=== PATIENT | female | born 1975 ===

== ENCOUNTER 2023-11-06 15:02 | Outpatient (REF) | payer MEDICAID, SELFPAY ==
[2023-11-06 16:51] LABS: Anion Gap 14 (12-20); Blood Urea Nitrogen 10 mg/dL (9-16); Calcium 9.2 mg/dL (8.4-10.2); Carbon Dioxide 24 mmol/L (22-29); Chloride 106 mmol/L (96-108); Estimated Glomerular Filt Rate > 60; Glucose Random 107 mg/dL (60-115); Iron 404 mcg/dL (30-160); Percent Iron Saturation 94 % (15-50); Potassium 3.5 mmol/L (3.3-5.1); Sodium 140 mmol/L (135-145); Total Iron Binding Capacity 432 mcg/dL (228-428); Unsaturated Iron Binding 28 ug/dL
[2023-11-06 16:55] LABS: Mean Corpuscular HGB Conc 28.6 g/dl (31.0-35.0); Mean Corpuscular Hemoglobin 18.4 pg (27.0-33.0); Platelet Count 454 X10*3/uL (160-400); Red Blood Count 5.44 X10*6/uL (4.20-5.50); White Blood Count 7.8 X10*3/uL (4.8-10.8)
[2023-11-06 17:10] LABS: Ferritin 48 ng/mL (10-250); Vitamin D 25-OH Total 5.5 ng/mL (>30)
[2023-11-06 17:11] LABS: Mean Corpuscular Volume 64.3 fL (80.0-98.0)
[2023-11-06 17:16] LABS: Basophils Abs Manual 0.2 X10*3/uL (0.0-0.2); Basophils Percent Manual 2 % (0-2); Lymphocytes Absolute Manual 1.9 X10*3/uL (1.2-4.9); Lymphocytes Percent Manual 24 % (20-40); Monocytes Absolute Manual 0.2 X10*3/uL (0.1-1.2); Monocytes Percent Manual 2 % (2-11); Neutrophils Percent Manual 72 % (45-73)
[2023-11-06 17:19] LABS: Burr Cells 2+ (3-5) /OIF; Ovalocytes 1+ (5-14) /OIF; RBC Morphology NOTED
[2023-11-06 17:21] LABS: Schistocytes 1+ (0-2) /OIF
[2023-11-06 17:22] LABS: Band Neutrophils Percent 0 % (3-5); Neutrophils Absolute Manual 5.6 X10*3/uL (2.0-8.3)
[2023-11-06 17:27] LABS: Platelet Estimate NORMAL (NORMAL); Platelet Morphology Comment NORMAL
== END 2023-11-06 15:03 | disposition home or self-care (01) ==
LOC: HO.HHCL 15:02
PROVIDERS: Visit Provider Nurse Practitioner
DX: R53.83 Other fatigue (principal); D25.9 Leiomyoma of uterus, unspecified; D64.9 Anemia, unspecified; I10 Essential (primary) hypertension
CPT/HCPCS: 36415; 80048; 82306; 82728; 83540; 84443; 85007; 85025; 85027

== ENCOUNTER 2024-05-20 16:12 | Outpatient (REF) | payer MEDICAID, SELFPAY ==
[2024-05-20 17:28] LABS: MANUAL DIFF FLAG NO
[2024-05-20 17:40] LABS: SCAN SMEAR FLAG 1
[2024-05-20 17:42] LABS: Basophils Absolute Auto 0.1 X10*3/uL (0.0-0.2); Eosinophils Absolute Auto 0.1 X10*3/uL (0.0-0.4); Eosinophils Percent Auto 0.5 % (0-4); Hematocrit 31.4 % (37.0-47.0); Hemoglobin 9.3 g/dl (12.0-16.0); Imm Gran Abs Auto 0.05 X10*3/uL (0.00-0.03); Imm Gran Pct Auto 0.4 % (0.0-0.4); Lymphocytes Absolute Auto 2.4 X10*3/uL (1.2-4.9); Lymphocytes Percent Auto 20.5 % (20-40); Mean Corpuscular HGB Conc 29.6 g/dl (31.0-35.0); Mean Corpuscular Hemoglobin 18.1 pg (27.0-33.0); Mean Platelet Volume 10.3 fL (9.4-12.3); Monocytes Absolute Auto 0.7 X10*3/uL (0.1-1.2); Monocytes Percent Auto 6.2 % (2-11); Neutrophils Absolute Auto 8.3 x10*3/uL (2.0-8.3); Neutrophils Percent Auto 71.4 % (45-73); Platelet Count 479 X10*3/uL (160-400); Red Blood Count 5.14 X10*6/uL (4.20-5.50); Red Cell Distribution Width 18.4 % (11.0-16.0); White Blood Count 11.6 X10*3/uL (4.8-10.8)
[2024-05-20 17:58] LABS: Cholesterol 237 mg/dL (<200); HDL Cholesterol 44 mg/dL (>40); Iron 11 mcg/dL (30-160); LDL Cholesterol Calculated 171 mg/dL (<100); Percent Iron Saturation 3 % (15-50); Total Iron Binding Capacity 424 mcg/dL (228-428); Triglycerides 110 mg/dL (<150); Unsaturated Iron Binding 413 ug/dL
[2024-05-20 19:04] LABS: Mean Corpuscular Volume 61.1 fL (80.0-98.0); PLT ABN DIST 1
[2024-05-21 03:41] LABS: Syphilis Screen Nonreactive (Nonreactive)
[2024-05-21 04:31] LABS: HBS Num1 14.93 mIU/mL (0-7.99); HBc Num1 0.23 S/CO (0.00-0.79); HIV AB/AG Nonreactive (Nonreactive); HIV Num 1 0.05 S/CO (0.00-0.99); Hepatitis B Core Antibody Nonreactive (Nonreactive); Hepatitis B Surface Antigen Negative (Negative); ~HepC Num1 0.15 S/CO (0.00-0.79); ~Hepatitis B Surface Antibody REACTIVE (Nonreactive); ~Hepatitis C Antibody Nonreactive (Nonreactive)
== END 2024-05-20 16:13 | disposition home or self-care (01) ==
LOC: HO.HHCL 16:12
PROVIDERS: Visit Provider Nurse Practitioner
DX: Z13.9 Encounter for screening, unspecified (principal); D64.9 Anemia, unspecified; E55.9 Vitamin D deficiency, unspecified
CPT/HCPCS: 36415; 80061; 82306; 83540; 85025; 86704; 86706; 86780; 86803; 87340; 87389

== ENCOUNTER 2024-06-10 13:03 | Outpatient (REF) | payer MEDICAID, SELFPAY ==
--- OUTSIDE RECORDS SUMMARY | 2024-06-10 14:52 | XMS_ITS | Encounter Summary ---
Author Organization [employer] Address [address] [place] [address] [address] [place] [address] Care Team Providers Care Senior Account Director Name Role Phone Joy Braswell NP Primary Care Provider [phone] Reason for Visit * Reason Onset Date Comments Care Coordination 05/23/2024 ICP CP Encounter Details Date Type Department Care Team (Late st Contact Info) Description 05/23/2024 Telephone [facility] [address] [place], [place] [phone] Joy Braswell NP [address] [place], [place] [phone] Care Coordination (ICP CP) Social History Tobacco Use Types Packs/Day Years Used Date Smoking Tobacco: Never Smokeless Tobacco: Never Depression Answer Date Recorded Patient Health Questionnaire-9 Score 20 02/18/2024 Patient Health Questionnaire-9 Score 20 02/18/2024 Last PHQ-9: Questionnaire Data Not on file 1 Housing Stability Answer Date Recorded What is your housing situation today? I have eliezer martínez 10/20/[address] you li ve. Do you have problems with any of the following? None of the above 10/20/2023 Food Insecurity Answer Date Recorded Within the past 12 months, y ou worried that your food would run out before you got money to buy more: Never True 10/20/2023 Within the past 12 months,th e food you bought just didn't last and you didn't have enough money to get more: Never True 08/2023 Transportation Answer Date Recorded In the past 12 months, has l ack of transportation kept you from medical appts, meetings, work or from getting things needed for daily living? No 10/20/2023 Utilities Answer Date Recorded In the past 12 months, has t he electric, gas, oil or water company threatened to shut off services in your home? No 10/20/2023 Depression Answer Date Recorded Patient Health Questionnaire-2 Score 6 02/18/2024 Comments Unknown Sex and Gender Information Value Date Recorded Sex Assigned at Female 03/17/2022 10:20 AM EDT Legal Sex Female 10:20 AM EDT Gender Identity Female 11/05/2023 9:30 AM EDT Sexual Orientation Straight 11/05/2023 9: 30 AM EDT documented as of this encounter Miscellaneous Notes * Telephone Encounter - Litzy Calle - 05/23/2024 9:35 AM EST PCP Designee has received and reviewed Care Plan from [facility]: Infection Prevention Coordinator: Sandy Rojo Contact Information: [phone] Care Plan scanned into patient's EHR and notification sent to PCP. documented in this encounter Plan of Treatment Upcoming Encounters Date Type Department Care Team ([facility] st Contact Info) Description 07/13/2024 9:00 AM EST Procedure Visit [facility] [address] [place] [address] oJy Braswell NP [address] [place] [address] documented as of this encounter Visit Diagnoses Not on filedocumented in this encounter Additional Health Concerns Assessment Noted Time PHQ-9 Depression Total Score: 20 024 2:37 PM EDT documented as of this encounter Care Teams Senior Account Director Relationship Specialty Start Date End Date Joy Braswell NP [address] [place] [address] PCP - General Family Medicine 04/27/24 Alia Delgado Oxidation EngineerCar Changer 05/23/24 documented as of this encounter
--- OUTSIDE RECORDS SUMMARY | 2024-06-10 14:52 | XMS_ITS | Encounter Summary ---
Author Organization [facility] Address [address] [place] [address] [address] [place] [address] Care Team Providers Care Disease And Insect Control Boss Name Role Phone Joy Braswell NP Primary Care Provider [phone] Reason for Referral * Imaging (Routine) - Authorized Specialty Diagnoses / Procedures Referred By Henrietta goss Referred To Contact Radiology Diagnoses Encounter for screening mammogram for malignant neoplasm of breast Procedures BI Mammogram Screening Tomosynthesis Bilateral Joy Braswell NP [address] [place] [address] Phone: tel: fax: [address] Phone: tel: fax: Referral ID Status Reason Start Date Expiration Date V isits Requested Visits Authorized [id number] Authorized 05/20/2024 05/20/2025 1 1 * Consultation (Routine) - Authorized Specialty Diagnoses / Procedures Referred By Henrietta goss Referred To Contact Obstetrics and Gynecology Diagnoses Anemia, unspecified type Joy Braswell NP [address] [place] [address] Phone: tel: fax: [address] Phone: tel: fax: Referral ID Status Reason Start Date Expiration Date Visits Requested Visits Authorized [id number] Authorized Specialty Services Required 05/20/2024 05/20/2025 9 9 Encounter Details Date Type Department Care Team (Late st Contact Info) Description 05/20/2024 3:30 PM EST Office Visit [facility] [address] [place] [address] Joy Braswell NP [address] [place] [address] Anemia, unspecified type (Primary Dx); Encounter for health-related screening; Hypovitaminosis D; Encounter for screening mammogram for malignant neoplasm of breast; Cervical cancer screening; Primary hypertension Social History Tobacco Use Types Packs/Day Years [...] AM EDT documented as of this encounter Last Filed Vital Signs Vital Sign Reading Time Taken Comments Blood Pressure 140/82 05/20/2024 3:45 PM EST Pulse 89 05/20/2024 3:00 PM EST Temperature 35.3 ??C (95.5 ??F) 05/20/2024 3:00 PM ES T Respiratory Rate 18 05/20/2024 3:00 PM EST Oxygen Saturation 99% 05/20/2024 3:00 PM EST Inhaled Oxygen Concentration - - Weight 64 kg (141 lb) 05/20/2024 3:00 PM EST Height 149.9 cm (4' 11 ) 05/20/2024 3:00 PM EST Body Mass Index 28.48 05/20/2024 3:00 PM EST documented in this encounter Progress Notes * Joy Braswell NP - 05/20/2024 3:30 PM EST SUBJECTIVE: Kat Kwon is a 48 y.o. female presents for sick visit. Complains of difficulty swallowing Here with daughter. HPI: Kat states she was sick about 1-2 months ago and started having difficulty swallowing her iron and vitamin C tabs after that. She is inquiring if there is a formulation she can try. Has continued taking amlodipine without a problem. Denies swallowing difficulties with foods, drink, or other medications. While she is here, we took the time to follow-up on her last visit which was October 2023 and discuss some routine health maintenance screenings. INDUCTION COORDINATION ENGINEER: states she was not able to get an appointment with INDUCTION COORDINATION ENGINEER to discuss interventions surrounding the fibroids causing heavy menses Hypertension: she has continued taking amlodipine but did not start hydrochlorothiazide as she was waiting for further directions regarding this. Has not been testing her BP at home. States she is asymptomatic. She is interested in learning more about how to test for Adi disease as her mother was recently diagnosed and it is recommended that she and her siblings also be tested. Review of Systems Constitutional: Positive for fatigue. Negative for chills, fever and unexpected weight change. HENT: Positive for trouble swallowing. Eyes: Negative for visual disturbance. Respiratory: Negative for cough, chest tightness and shortness of breath. Cardiovascular: Negative for chest pain, palpitations and leg swelling. Gastrointestinal: Negative for abdominal pain, constipation, diarrhea and nausea. Genitourinary: Negative for dysuria. Musculoskeletal: Negative for arthralgias, back pain, myalgias and neck pain. Skin: Negative. Negative for rash and wound. Neurological: Negative for dizziness, weakness, light-headedness and headaches. Psychiatric/Behavioral: Negative for behavioral problems, confusion, decreased concentration and suicidal ideas. All other systems reviewed and are negative. OBJECTIVE: Vitals: 05/20/24 1500 05/20/24 1545 BP: (!) 149/98 140/82 BP Location: Right arm Left arm Patient Position: Sitting Sitting BP Cuff Size: Large adult Adult Pulse: 89 Resp: 18 Temp: 95.5 ??F (35.3 ??C) TempSrc: Temporal SpO2: 99% Weight: 141 lb (64 kg) Height: 4' 11 (1.499 m) Patient Active Problem List Diagnosis Agoraphobia Anemia Anxiety Depression Menorrhagia Primary hypertension Hypovitaminosis D Encounter for screening mammogram for malignant neoplasm of breast Current Outpatient Medications: amLODIPine (Norvasc) 5 MG tablet, TAKE 1 TABLET BY MOUTH EVERY DAY, Disp: 90 tablet, Rfl: 1 ascorbic acid (Vitamin C) 250 MG chewable tablet, Chew 1 tablet (250 mg) every other day. With irontablet, Disp: 90 tablet, Rfl: 0 Blood Pressure Monitoring (Blood Pressure Cuff) misc, 1 Units Once per day., Disp: 1 each, Rfl: 0 cholecalciferol (Vitamin D3) 1.25 MG (69687 UT) tablet, Take 1 tablet (50,000 Units) by mouth 1 (one) time per week. For 8 weeks, Disp: 8 tablet, Rfl: 0 FeroSul 325 (65 Fe) MG tablet, Take 1 tablet (325 mg) by mouth every other day. With vitamin C, Disp: 15 tablet, Rfl: 1 hydroCHLOROthiazide 12.5 MG tablet, Take 1 tablet (12.5 mg) by mouth Once per day., Disp: 30 tablet, Rfl: 11 Physical Exam Vitals reviewed. Constitutional: General: She is not in acute distress. Appearance: Normal appearance. She is not ill-appearing. HENT: Head: Normocephalic and atraumatic. Right Ear: External ear normal. Left Ear: External ear normal. Nose: Nose normal. Eyes: General: No scleral icterus. Extraocular Movements: Extraocular movements intact. Cardiovascular: Rate and Rhythm: Normal rate and regular rhythm. Pulses: Normal pulses. Heart sounds: Normal heart sounds. Pulmonary: Effort: Pulmonary effort is normal. No respiratory distress. Breath sounds: Normal breath sounds. Musculoskeletal: General: Normal range of motion. Cervical back: Normal range of motion. Skin: General: Skin is warm. Coloration: Skin is pale. Neurological: General: No focal deficit present. Mental Status: She is alert and oriented to person, place, and time. Gait: Gait normal. Psychiatric: Mood and Affect: Mood normal. Behavior: Behavior normal. Current Outpatient Medications Medication Sig Dispense Refill amLODIPine (Norvasc) 5 MG tablet TAKE 1 TABLET BY MOUTH EVERY DAY 90 tablet 1 ascorbic acid (Vitamin C) 250 MG chewable tablet Chew 1 tablet (250 mg) every other day. With iron tablet 90 tablet 0 Blood Pressure Monitoring (Blood Pressure Cuff) misc 1 Units Once per day. 1 each 0 cholecalciferol (Vitamin D3) 1.25 MG (87072 UT) tablet Take 1 tablet (50,000 Units) by mouth 1 (one) time per week. For 8 weeks 8 tablet 0 FeroSul 325 (65 Fe) MG tablet Take 1 tablet (325 mg) by mouth every other day. With vitamin C 15 tablet 1 hydroCHLOROthiazide 12.5 MG tablet Take 1 tablet (12.5 mg) by mouth Once per day. 30 tablet 11 No current facility-administered medications for this visit. ASSESSMENT/PLAN: Problem List Items Addressed This Visit Anemia - Primary -offered liquid, however she declined -medication formulations changed. Encouraged to trial taking med with apple sauce or pudding if still bothersome -a new referral to farmworker fruit placed for evaluation of fibroids Relevant Medications FeroSul 325 (65 Fe) MG tablet ascorbic acid (Vitamin C) 250 MG chewable tablet Other Relevant Orders CBC auto differential (Completed) Iron And Total Iron Binding Capacity (Completed) Referral to Obstetrics / Gynecology Primary hypertension -advised to start taking hydrochlorothiazide as her office BP readings are persistently elevated -continue monitoring BP at home -diet and lifestyle recommendations reviewed -scheduled 2 week follow-up with team nurses Hypovitaminosis D -completed initial course of supplementation -repeat ordered to evaluate necessity for continuation/ dose change Relevant Orders Vitamin D, 25-Hydroxy, Total, Immunoassay (Completed) Encounter for screening mammogram for malignant neoplasm of breast Relevant Orders BI Mammogram Screening Tomosynthesis Bilateral Other Visit Diagnoses Encounter for health-related screening Relevant Orders Lipid Panel, Standard (Completed) HIV-1/2 Antigen and Antibodies, Fourth Generation, with Reflexes (Completed) Hepatitis C Antibody with Reflex to HCV, RNA, Quantitative, Real-Time PCR (Completed) Hepatitis B surface antigen, EIA (Completed) Hepatitis B Surface Antibody, Qualitative (Completed) Hepatitis B Core Antibody, Total (Completed) Syphilis Screen (Completed) Cervical cancer screening -patient is agreeable to scheduling appointment with me for testing. she was provided the appointment date and time prior to leaving the clinic today documented in this encounter Miscellaneous Notes * Assessment & Plan Note - Joy Braswell NP - 06/03/2024 11:42 AM ESTAssociated Problem(s): Primary hypertension -advised to start taking hydrochlorothiazide as her office BP readings are persistently elevated -continue monitoring BP at home -diet and lifestyle recommendations reviewed -scheduled 2 week follow-up with team nurses * Assessment & Plan Note - Joy Braswell NP - 06/03/2024 11:38 AM ESTAssociated Problem(s): Hypovitaminosis D -completed initial course of supplementation -repeat ordered to evaluate necessity for continuation/ dose change * Assessment & Plan Note - Joy Braswell NP - 06/03/2024 11:33 AM ESTAssociated Problem(s): Anemia -offered liquid, however she declined -medication formulations changed. Encouraged to trial taking med with apple sauce or pudding if still bothersome -a new referral to farmworker fruit placed for evaluation of fibroids documented in this encounter Plan of Treatment Upcoming Encounters Date Type Department Care Team (Late st Contact Info) Description 07/13/2024 9:00 AM EST Procedure Visit [facility] [address] [place] [address] Joy Braswell NP [address] [place] [address] Scheduled Orders Name Type Priority Associated Diagnoses Orde r Schedule BI Mammogram Screening Tomosynthesis Bilateral Imaging Routine Encounter for screening mammogram for malignant neoplasm of breast Expected: 05/20/2024, Expires: 07/18/2025 Scheduled Referrals Name Type Priority Associated Diagnoses Orde r Schedule Referral to Obstetrics / Gynecology Outpatient Referral Routine Anemia, unspecified type Expected: 05/20/2024 (Approximate), Expires: 05/20/2025 documented as of this encounter Procedures Procedure Name Priority Date/Time Associated Diagnosis Comments SYPHILIS SCREEN Routine 05/20/2024 4:14 PM EST Encounter for health-related screening VITAMIN D,25-OH,TOTAL,IA Routine 05/20/2024 4:14 PM EST Hypovitaminosis D CBC WITH AUTO DIFFERENTIAL Routine 05/20/2024 4:14 PM EST Anemia, unspecified type HEPATITIS C AB W/REFL TO HCV RNA, QN, PCR Routine 05/20/2024 4:14 PM EST Encounter for health-related screening IRON AND TOTAL IRON BINDING CAPACITY Routine 05/20/2024 4:14 PM EST Anemia, unspecified type HEPATITIS B SURFACE ANTIGEN, EIA Routine 05/20/2024 4:14 PM EST Encounter for health-related screening HEPATITIS B CORE AB TOTAL Routine 05/20/2024 4:14 PM EST Encounter for health-related screening HIV 1/2 ANTIGEN/ANTIBODY, FOURTH GENERATION W/RFL Routine 05/20/2024 4:14 PM EST Encounter for health-related screening HEPATITIS B SURFACE ANTIBODY, QUALITATIVE Routine 05/20/2024 4:14 PM EST Encounter for health-related screening LIPID PANEL, STANDARD Routine 05/20/2024 4:14 PM EST Encounter for health-related screening documented in this encounter Results * Syphilis Screen (05/20/2024 4:14 PM EST) Syphilis Screen Nonreactive Nonreactive [facility] Blood Venous blood specimen / Unknown 05/20/2024 4:14 PM EST 05/20/2024 5:25 PM EST [facility] [facility] LAB BLOOD ORDERABLES Final Resu lt Performing Organization Address [facility]/ZIP Co de Phone Number [facility] [address] [place] [phone] * Hepatitis B Core Antibody, Total (05/20/2024 4:14 PM EST) Hepatitis B Core Antibody Nonreactive Nonreactive [facility] Blood Venous blood specimen / Unknown 05/20/2024 4:14 PM EST 05/20/2024 5:25 PM EST [facility] LAB BLOOD ORDERABLES Final Resu lt Performing Organization Address [facility] Co de Phone Number [facility] [address] [place] [phone] * Hepatitis B Surface Antibody, Qualitative (05/20/2024 4:14 PM EST) ~Hepatitis B Surface Antibody REACTIVE Nonreactive [facility] Comment:REACTIVE: > 11.99 mI U/mL Blood Venous blood specimen / Unknown 05/20/2024 4:14 PM EST 05/20/2024 5:25 PM EST [facility] [employer] [facility] LAB BLOOD ORDERABLES Final Resu lt Performing Organization Address City/[facility]/ZIP Co de Phone Number [facility] [address] [place] [phone] * Hepatitis B surface antigen, EIA (05/20/2024 4:14 PM EST) Pathologist [facility] Hepatitis B Surface Ag Negative Negative [facility] Blood Venous blood specimen / Unknown 05/20/2024 4:14 PM EST 05/20/2024 5:25 PM EST Pending sale to [facility] LAB BLOOD ORDERABLES Final Resu lt Performing Organization Address [facility] Co de Phone Number [facility] [address] [place] [phone] * Hepatitis C Antibody with Reflex to HCV, RNA, Quantitative, Real-Time PCR (05/20/2024 4:14 PM EST) Pathologist [facility] Hepatitis C Antibody Nonreactive Nonreactive [facility] Comment:Antibodies to HCV no t detected; does not exclude early acuteHCV infection. Blood Venous blood specimen / Unknown 05/20/2024 4:14 PM EST 05/20/2024 5:25 PM EST Pending sale to [facility] LAB BLOOD ORDERABLES Final Resu lt Performing Organization Address [facility] de Phone Number [facility] [address] [place] [phone] * HIV-1/2 Antigen and Antibodies, Fourth Generation, with Reflexes (05/20/2024 4:14 PM EST) HIV AB/AG Nonreactive Nonreactive [facility] Comment:HIV-1 p24 Ag and/or HIV-1/HIV-2 Ab not detected.A test result that is nonreactive does not exclude thepossibility of exposure to or infection with HIV-1 and/orHIV-2. Nonreactive results in this assay for individualswith prior exposure to HIV-1 and/or HIV-2 may be due toantigen and antibody levels that are below the limit ofdetection of this assay.The [place] HIV Ag/Ab Combo assay result andsupplemental assay results should be interpreted inconjunction with the patient's clinical presentation,history and other laboratory results. If the results areinconsistent with clinical evidence, additional testing issuggested to confirm the result. Blood Venous blood specimen / Unknown 05/20/2024 4:14 PM EST 05/20/2024 5:25 PM EST [facility] BLOOD ORDERABLES Final Resu lt Performing Organization Address [facility] de Phone Number [facility] [address] [place] [phone] * (ABNORMAL) Lipid Panel, Standard (05/20/2024 4:14 PM EST) Triglycerides 110 <150 mg/dL [facility] Comment:Desirable Triglyceri de: less than 150 mg/dLBorderline High Triglyceride 150-199 mg/dLHigh Triglyceride: 200-499 mg/dLVery High Triglyceride: greater than or equal to 5OO mg/dL Cholesterol 237(H) <200 mg/dL [facility] Comment:Desirable Cholestero l: less than 200 mg/dLBorderline High Cholesterol: 200-239 mg/dLHigh Cholesterol: greater than 239 mg/dL LDL Cholesterol Calculated 171(H) <100 mg/dL [facility] Comment:Desirable LDL: less than 100 mg/dLNear Optimal/Above Optimal LDL: 110- 129 mg/dLBorderline High LDL: 130-159 mg/dLHigh LDL: 160-189 mg/dLVery High LDL: greater than or equal to 190 mg/dL HDL Cholesterol 44 >40 mg/dL [facility] Comment:Desirable HDL: great er than 40 mg/dL Note: This HDL assay may give artificially low results in patients with liver disease. Blood Venous blood specimen / Unknown 05/20/2024 4:14 PM EST 05/20/2024 5:25 PM EST [facility] LAB BLOOD ORDERABLES Final Resu lt Performing Organization Address [facility] Co de Phone Number [facility] [address] [place] [phone] [phone] * Vitamin D, 25-Hydroxy, Total, Immunoassay (05/20/2024 4:14 PM EST) Vitamin D 25-OH Total 39.0 >30 ng/mL [facility] Comment:Health Based Referen ce Values*< 20 ng/mL [id number] ng/mL Insufficient> 30 ng/mL Sufficient*Isi FAM. N Engl J Med. 2007;357:266-280Care must be taken in interpreting Vitamin D results fromdifferent laboratories and methodologies. Published datademonstrated that results from patients undergoinghemodialysis may show a negative bias when tested withvarious automated 25-OH vitamin D assays when compared toLC-MS/MS.When testing samples from patients whose predominant form ofVitamin D is Vitamin D2, such as patients receiving VitaminD2 supplementation, results that are subtherapeutic shouldbe confirmed with another method such as LC-MS/MS. Blood Venous blood specimen / Unknown 05/20/2024 4:14 PM EST 05/20/2024 5:25 PM EST [facility] LAB BLOOD ORDERABLES Final Resu lt Performing Organization Address [facility]/ZIP Co de Phone Number [facility] [address] [place] [phone] * (ABNORMAL) Iron And Total Iron Binding Capacity (05/20/2024 4:14 PM EST) Iron 11(L) 30 - 160 mcg/dL [facility] Total Iron Binding Capacity 424 228 - 428 mcg/dL [facility] Percent Iron Saturation 3(L) 15 - 50 % [facility] Unsaturated Iron Binding 413 ug/dL [facility] Blood Venous blood specimen / Unknown 05/20/2024 4:14 PM EST 05/20/2024 5:25 PM EST [facility] LAB BLOOD ORDERABLES Final Resu lt [facility] [address] [place] [phone] * (ABNORMAL) CBC auto differential (05/20/2024 4:14 PM EST) White Blood Count 11.6(H) 4.8 - 10.8 X10*3/uL [facility] Red Blood Count 5.14 4.20 - 5.50 X10*6/uL [facility] Hemoglobin 9.3(L) 12.0 - 16.0 g/dl [facility] Hematocrit 31.4(L) 37.0 - 47.0 % [facility] Mean Corpuscular Volume 61.1(L) 80.0 - 98.0 fL [facility] Mean Corpuscular Hemoglobin 18.1(L) 27.0 - 33.0 pg [facility] Mean Corpuscular HGB Conc 29.6(L) 31.0 - 35.0 g/dl [facility] Red Cell Distribution Width 18.4(H) 11.0 - 16.0 % [facility] Platelet Count 479(H) 160 - 400 X10*3/uL [facility] Mean Platelet Volume 10.3 9.4 - 12.3 fL [facility] Neutrophils Percent Auto 71.4 45 - 73 % [facility] Imm Gran Pct Auto 0.4 0.0 - 0.4 % [facility] Lymphocytes Percent Auto 20.5 20 - 40 % [facility] Monocytes Percent Auto 6.2 2 - 11 % [facility] Eosinophils Percent Auto 0.5 0 - 4 % [facility] Basophils Percent Auto 1.0 0 - 2 % [facility] NRBC Pct Auto 0.0 0.0 - 0.2 /100WBC [facility] Neutrophils Absolute Auto 8.3 2.0 - 8.3 x10*3/uL [facility] Imm Gran Abs Auto 0.05(H) 0.00 - 0.03 X10*3/uL [facility] Lymphocytes Absolute Auto 2.4 1.2 - 4.9 X10*3/uL [facility] Monocytes Absolute Auto 0.7 0.1 - 1.2 X10*3/uL [facility] Eosinophils Absolute Auto 0.1 0.0 - 0.4 X10*3/uL [facility] Basophils Absolute Auto 0.1 0.0 - 0.2 X10*3/uL [facility] NRBC Abs Auto 0.000 0.0 - 0.012 X10*3/uL [facility] Blood Venous blood specimen / Unknown 05/20/2024 4:14 PM EST 05/20/2024 5:25 PM EST us Joy Braswell NP LAB BLOOD ORDERABLES Final Resu lt [facility] [address] [place] [phone] documented in this encounter Visit Diagnoses Diagnosis Anemia, unspecified type- Primary Encounter for health-related screening Hypovitaminosis D Unspecified vitamin D deficiency Encounter for screening mammogram for malignant neoplasm of breast Cervical cancer screening Screening for malignant neoplasm of the cervix Primary hypertension Unspecified essential hypertension documented in this encounter Additional Health Concerns Assessment Noted Time PHQ-9 Depression Total Score: 20 024 2:37 PM EDT documented as of this encounter Care Teams Disease And Insect Control Boss Relationship Specialty Start Date End Date Joy Braswell NP [address] [place] [phone] PCP - General Family Medicine 04/27/24 documented as of this encounter
--- OUTSIDE RECORDS SUMMARY | 2024-06-10 14:52 | XMS_ITS | Encounter Summary ---
Author Organization [employer] Address [address] [place] [address] [address] [place] [address] Care Team Providers Care Leasing Representative Name Role Phone DonyaJoy okeefe SIMI Primary Care Provider [phone] Reason for Visit * Reason Comments Blood Pressure Check Encounter Details Date Type Department Care Team ([facility] st Contact Info) Description 06/03/2024 1:30 PM EST Telemedicine [facility] [address] [place] [address] Nicole Haji RN Primary hypertension Social History Tobacco Use Types [...] AM EDT documented as of this encounter Progress Notes * Nicole Haji RN - 06/03/2024 1:30 PM EST TC placed to pt per PCP message, Please call and ensure the patient has seen the message below andassess home BP while on the phone with her as she missed her nurse visit this am. Thanks Pt reports they thought it was a telephone BP visit with the nurse. Pt saw provider message, but nurse reviewed with pt per pt request. Pt reports she was not able to pick up and delivery driver the FeroSul 325 (65 Fe) MG tabletas her insurance wont cover unless it is prescribed as a 90 day supply. Pt denies chest pain, SOB, lightheadedness, blurry vision. Pt reports headaches approximately everyother day rated at 5-6/10. Pt denies smoking or drinking alcohol. Pt does not currently exercise, but will begin to try per PCP recommendation. Pt reports there are days when she feels she can eat everything in sight and days that she barely eats at all. Pt reports this is not new for her appetite.Advised to avoid fried, fatty, processed foods and pastries. Pt reports she gets short of breath when she walks up the stairs, but denies SOB at rest. Pt reports taking BP medications as prescribed. Pt at home BP readings as follows: 05/21/24 - forgot 05/22/24 - 148/94 05/23/24 - 136/90 05/24/24 - 132/90 05/25/24 - 128/83 05/26/24 - 137/85 05/27/24 - 128/89 05/28/24 - 155/92 05/29/24 - 133/93 05/30/24 - 133/93 05/31/24 - 117/83 06/01/24 - 123/88 06/02/24 - 127/89 06/03/24 - 124/85 Advised to call office with any questions or concerns. Pt encouraged to avoid fried, fatty, processed foods. Advised to begin exercising for 30 minutes per day. Pt verbalized understanding and deniesany questions or concerns at this time. Message forwarded to provider for review. documented in this encounter Plan of Treatment Upcoming Encounters Date Type Department Care Team (Late st Contact Info) Description 07/13/2024 9:00 AM EST Procedure Visit [facility] [address] [place] [address] Joy Braswell NP [address] [place] [address] documented as of this encounter Visit Diagnoses Diagnosis Primary hypertension Unspecified essential hypertension documented in this encounter Additional Health Concerns Assessment Noted Time PHQ-9 Depression Total Score: 20 024 2:37 PM EDT documented as of this encounter Care Teams Leasing Representative Relationship Specialty Start Date End Date Joy Braswell NP [address] [place] [address] PCP - General Family Medicine 04/27/24 Alia Delgado Cloth Boil Off Machine OperatorLife Enrichment Specialist 05/23/24 documented as of this encounter
--- OUTSIDE RECORDS SUMMARY | 2024-06-10 14:52 | XMS_ITS | Clinical Summary ---
Author Organization [employer] Address [address] [place] [address] 7[address] [place] [address] Care Team Providers Care Fender Mechanic Name Role Phone Donyamaldonado Joy SIMI Primary Care Provider [phone] Allergies No known active allergies Medications * This document contains information received from the source organization and may not represent a complete record from that organization. Blood Pressure Monitoring (Blood Pressure Cuff) miscIndications: Primary hypertension 1 Units Once per day. 1 each 11/06/19 24 Active hydroCHLOROthiaz americo 12.5 MG tabletIndication s:Primary hypertension Take 1 tablet (12.5 mg) by mouth Once per day. 30 tablet 11 11/06/19 24 025 Active cholecalciferol (Vitamin D3) 1.25 MG (12354 UT) tabletIndication s:Hypovitaminosi s D Take 1 tablet (50,000 Units) by mouth 1 (one) time per week. For 8 weeks 8 tablet 02/06/20 24 Active amLODIPine (Norvasc) 5 MG tablet TAKE 1 TABLET BY MOUTH EVERY DAY 90 tablet 1 02/15/20 24 Active ascorbic acid (Vitamin C) 250 MG chewable tabletIndication s:Anemia, unspecified type Chew 1 tablet (250 mg) every other day. With iron tablet 90 tablet 05/20/19 25 Active FeroSul 325 (65 Fe) MG tabletIndication s:Anemia, unspecified type Take 1 tablet (325 mg) by mouth every other day. With vitamin C 45 tablet 1 06/03/19 25 025 Active FeroSul 325 (65 Fe) MG tablet Take 1 tablet by mouth every other day. With vitamin C 10/16/19 24 025 Discontinued(Re order (will not trigger notification to Pharmacy)) Ascorbic Acid (vitamin C) 250 MG tabletIndication s:Anemia, unspecified type TAKE 1 TABLET BY MOUTH EVERY OTHER DAY WITH IRON 45 tablet 02/15/20 24 025 Discontinued(Al ternate therapy) FeroSul 325 (65 Fe) MG tabletIndication s:Anemia, unspecified type Take 1 tablet (325 mg) by mouth every other day. With vitamin C 15 tablet 1 05/20/19 25 025 Discontinued(Re order (will not trigger notification to Pharmacy)) Active Problems Problem Noted Date Diagnosed Date Hypovitaminosis D 06/03/2024 Assessment & Plan (06/03/2024 11:38 AM EST): -completed initial course of supplementation -repeat ordered to evaluate necessity for continuation/ dose change Encounter for screening mamm ogram for malignant neoplasm of breast 06/03/2024 Primary hypertension 02/06/2024 Assessment & Plan (06/03/2024 11:42 AM EST): -advised to start taking hydrochlorothiazide as her office BP readings are persistently elevated -continue monitoring BP at home -diet and lifestyle recommendations reviewed -scheduled 2 week follow-up with team nurses Assessment & Plan (02/06/2024 6:02 AM EDT): -continue amlodipine 5 mg as rx'ed -start hctz given persistently elevated BP -BP cuff rx'ed and log provided for daily monitoring -follow-up 1 month for BP check Agoraphobia 11/02/2023 Anemia 11/02/2023 Assessment & Plan (06/03/2024 11:33 AM EST): -offered liquid, however she declined -medication formulations changed. Encouraged to trial taking med with apple sauce or pudding if still bothersome -a new referral to roving machine operator placed for evaluation of fibroids Assessment & Plan (02/06/2024 6:00 AM EDT): -repeat labs ordered -encouraged continued use of iron supplement in addition to vitamin C -advised increased intake of iron rich foods, examples provided -follow-up with assigned pcp in 4 weeks Anxiety 11/02/2023 Assessment & Plan (02/06/2024 5:59 AM EDT): -patient seen by psych during hospitalization -states she stable at this time, but is willing to accept referral for psych services -advised on the benefits of engaging in gentle yoga practices, meditation, deep breathing and journaling along with physical activity to aid in symptom improvement -follow-up in 4 weeks Depression 11/02/2023 Menorrhagia 11/02/2023 Encounters * This document contains information received from the source organization and may not represent a complete record from that organization. Date Type Department Care Team Description 06/03/2024 1:30 PM EST Telemedicine [facility] [address] [place] [phone] Nicole Haji, HUSSEIN Primary hypertension 06/03/2024 Orders Only [facility] [address] [place] [address] Joy Braswell NP Anemia, unspecified type 06/03/2024 Refill [facility] [address] [place] [address] Nicole Haji RN Anemia, unspecified type 06/03/[address] [address] Joy Braswell NP No Show 05/23/[address] [address] Joy Braswell NP Care Coordination (ICP CP) 05/20/2024 3:30 PM EST Office Visit [address] [address] Joy Braswell NP Anemia, unspecified type (Primary Dx); Encounter for health-related screening; Hypovitaminosis D; Encounter for screening mammogram for malignant neoplasm of breast; Cervical cancer screening; Primary hypertension 05/20/2024 Travel 05/03/[address] [address] Joy Braswell NP FYI from Last 3 Months Immunizations Name Administration Dates Next Due Hep B, adult 07/10/2005,06/10/2005 Influenza injectable quadriv alent IIV4 with preservative 02/02/2017 Influenza, Split (incl. purified surface antigen ) 03/09/2013 TD (adult), 2 Lf tetanus tox oid, preservative free, adsorbed 06/06/2005 Tdap 11/22/2015 Social History Tobacco Use Types Packs/Day Years Used Date Smoking Tobacco: Never Smokeless Tobacco: Never Tobacco Cessation:Counseling Given: Not Answered Depression Answer Date Recorded Patient Health Questionnaire-9 Score 20 02/18/2024 Patient Health Questionnaire-9 Score 20 02/18/2024 Last PHQ-9: Questionnaire Data Not on file 1 Housing Stability Answer Date Recorded What is your housing situation today? I have eliezer tanya 10/20/[address] you li [...] Orientation Straight 11/05/2023 9: 30 AM EDT Last Filed Vital Signs Vital Sign Reading [...] Mass Index 28.48 05/20/2024 3:00 PM EST Plan of Treatment Upcoming Encounters Date Type Department Care Team (Late st Contact Info) Description 07/13/2024 9:00 AM EST Procedure Visit [facility] [address] [place], [place] [phone] Joy Braswell NP [address] [place] [address] Health Maintenance Due Date Last Done Comments CT Colonography 1973 Colonoscopy 1973 Colorectal Cancer Screening 1973 FIT DNA/Cologuard 1973 FIT 1973 FOBT 1973 Sigmoidoscopy 1973 Alcohol/Substance Use Screening 1985 Family Planning (PISQ) 1988 Pap Smear 1994 Cervical Cancer Screening 2003 HPV/Cotest 2003 Hepatitis B Vaccines (3 of 3 - 19+ 3-dose series) 12/08/2005 07/10/2005, 06/10/2005 Mammogram 2013 Zoster Vaccines (1 of 2) 2023 COVID-19 Vaccine (1 - 2023-2 5 season) 2024 Influenza Vaccine (#1) 2024 7, 03/09/2013 Depression Monitoring (PHQ-9) 08/18/2024, 02/18/2024 SDOH Screening 10/19/2024 10/20/2023 Tobacco Screening 11/05/2024 11/06/2023 Depression Screening 02/17/2025 02/18/2024, 02/18/2024 DTaP/Tdap/Td Vaccines (2 - T d or Tdap) 11/21/2025 11/22/2015, 06/06/2005 Lipid Panel 05/20/2029 05/20/2024 RSV Patients and Patients Aged 60 years or older (1 - 1-dose 75+ series) 2048 HIV Screening Completed 05/20/2024 Hepatitis C Screening Completed 05/20/2024 HIB Vaccines Aged Out No longer eligi ble based on patient's age to complete this topic HPV Vaccines Aged Out No longer eligi ble based on patient's age to complete this topic Hepatitis A Vaccines Aged Out No long er eligible based on patient's age to complete this topic IPV Vaccines Aged Out No longer eligi ble based on patient's age to complete this topic Meningococcal Vaccine Aged Out No cesar paul eligible based on patient's age to complete this topic Pneumococcal Vaccine: Pediatrics (0 to 5 Years) and At-Risk Patients (6 to 64 Years) Aged Out No longer eligible b ased on patient's age to complete this topic RSV under 20 months Aged Out No longe r eligible based on patient's age to complete this topic Rotavirus Vaccines Aged Out No longer eligible based on patient's age to complete this topic Procedures Procedure Name Priority Date/Time Associated Diagnosis Comments SYPHILIS SCREEN Routine 05/20/2024 4:14 PM EST Encounter for health-related screening HEPATITIS B CORE AB TOTAL Routine 05/20/2024 4:14 PM EST Encounter for health-related screening HEPATITIS B SURFACE ANTIBODY, QUALITATIVE Routine 05/20/2024 4:14 PM EST Encounter for health-related screening HEPATITIS B SURFACE ANTIGEN, EIA Routine 05/20/2024 4:14 PM EST Encounter for health-related screening HEPATITIS C AB W/REFL TO HCV RNA, QN, PCR Routine 05/20/2024 4:14 PM EST Encounter for health-related screening HIV 1/2 ANTIGEN/ANTIBODY, FOURTH GENERATION W/RFL Routine 05/20/2024 4:14 PM EST Encounter for health-related screening LIPID PANEL, STANDARD Routine 05/20/2024 4:14 PM EST Encounter for health-related screening VITAMIN D,25-OH,TOTAL,IA Routine 05/20/2024 4:14 PM EST Hypovitaminosis D IRON AND TOTAL IRON BINDING CAPACITY Routine 05/20/2024 4:14 PM EST Anemia, unspecified type CBC WITH AUTO DIFFERENTIAL Routine 05/20/2024 4:14 PM EST Anemia, unspecified type from Last 3 Months Results * Syphilis Screen (05/20/2024 4:14 PM EST) Syphilis Screen Nonreactive Nonreactive [facility] Blood Venous blood specimen / Unknown 05/20/2024 4:14 PM EST 05/20/2024 5:25 PM EST [facility] BLOOD ORDERABLES Final Resu lt Performing Organization Address [facility] de Phone Number [facility] [address] [place] [address] [phone] * Vitamin D, 25-Hydroxy, Total, Immunoassay (05/20/2024 4:14 PM EST) Vitamin D 25-OH Total 39.0 >30 ng/mL [facility] Comment:Health Based Referen ce Values*< 20 ng/mL Vgzknatut04-08 ng/mL Insufficient> 30 ng/mL Sufficient*Isi FAM. N [...] 4:14 PM EST 05/20/2024 5:25 PM EST [facility] BLOOD ORDERABLES Final Resu lt [facility] [address] [place], [place] [phone] * (ABNORMAL) CBC auto differential (05/20/2024 4:14 PM EST) White Blood Count 11.6(H) 4.8 - 10.8 X10*3/uL [facility] Red Blood Count 5.14 4.20 - 5.50 X10*6/uL [facility] Hemoglobin 9.3(L) 12.0 - 16.0 g/dl [facility] Hematocrit 31.4(L) 37.0 - 47.0 % [facility] Mean Corpuscular Volume 61.1(L) 80.0 - 98.0 fL [facility] Mean Corpuscular Hemoglobin 18.1(L) 27.0 - 33.0 pg [facility] Mean Corpuscular HGB Conc 29.6(L) 31.0 - 35.0 g/dl [facility] Red Cell Distribution Width 18.4(H) 11.0 - 16.0 % [facility] Platelet Count 479(H) 160 - 400 X10*3/uL [facility] Mean Platelet Volume 10.3 9.4 - 12.3 fL [facility] Neutrophils Percent Auto 71.4 45 - 73 % [facility] Imm Gran Pct Auto 0.4 0.0 - 0.4 % [facility] Lymphocytes Percent Auto 20.5 20 - 40 % [facility] Monocytes Percent Auto 6.2 2 - 11 % [facility] Eosinophils Percent Auto 0.5 0 - 4 % [facility] Basophils Percent Auto 1.0 0 - 2 % [facility] NRBC Pct Auto 0.0 0.0 - 0.2 /100WBC [facility] Neutrophils Absolute Auto 8.3 2.0 - 8.3 x10*3/uL [facility] Imm Gran Abs Auto 0.05(H) 0.00 - 0.03 X10*3/uL [facility] Lymphocytes Absolute Auto 2.4 1.2 - 4.9 X10*3/uL [facility] Monocytes Absolute Auto 0.7 0.1 - 1.2 X10*3/uL [facility] Eosinophils Absolute Auto 0.1 0.0 - 0.4 X10*3/uL [facility] Basophils Absolute Auto 0.1 0.0 - 0.2 X10*3/uL [facility] NRBC Abs Auto 0.000 0.0 - 0.012 X10*3/uL [facility] Blood Venous blood specimen / Unknown 05/20/2024 4:14 PM EST 05/20/2024 5:25 PM EST [facility] LAB BLOOD ORDERABLES Final Resu lt Performing Organization Address [facility] Co de Phone Number [facility] [address] [place] [phone] * Hepatitis C Antibody with Reflex to HCV, RNA, Quantitative, Real-Time PCR (05/20/2024 4:14 PM EST) Pathologist [facility] Hepatitis C Antibody Nonreactive Nonreactive [facility] Comment:Antibodies to HCV no t detected; does not exclude early acuteHCV infection. Blood Venous blood specimen / Unknown 05/20/2024 4:14 PM EST 05/20/2024 5:25 PM EST [facility] LAB BLOOD ORDERABLES Final Resu lt Performing Organization Address [facility] Co de Phone Number [facility] [address] [place] [phone] * (ABNORMAL) Iron And Total Iron Binding Capacity (05/20/2024 4:14 PM EST) Iron 11(L) 30 - 160 mcg/dL [facility] Total Iron Binding Capacity 424 228 - 428 mcg/dL [facility] Percent Iron Saturation 3(L) 15 - 50 % [facility] Unsaturated Iron Binding 413 ug/dL [facility] Blood Venous blood specimen / Unknown 05/20/2024 4:14 PM EST 05/20/2024 5:25 PM EST Joy Naqvi [facility] LAB BLOOD ORDERABLES Final Resu lt Performing Organization Address [facility]/ZIP Co de Phone Number [facility] [address] [place] [phone] [phone] * Hepatitis B surface antigen, EIA (05/20/2024 4:14 PM EST) Hepatitis B Surface Ag Negative Negative [facility] Blood Venous blood specimen / Unknown 05/20/2024 4:14 PM EST 05/20/2024 5:25 PM EST [facility] BLOOD ORDERABLES Final Resu lt Performing Organization Address [facility] Co de Phone Number [facility] [address] [place] [phone] * Hepatitis B Core Antibody, Total (05/20/2024 4:14 PM EST) Hepatitis B Core Antibody Nonreactive Nonreactive [facility] Blood Venous blood specimen / Unknown 05/20/2024 4:14 PM EST 05/20/2024 5:[address] [facility] BLOOD ORDERABLES Final Resu lt Performing Organization Address [facility] Co de Phone Number [facility] [address] [place] [address] [phone] * HIV-1/2 Antigen and Antibodies, Fourth Generation, with Reflexes (05/20/2024 4:14 PM EST) HIV AB/AG Nonreactive Nonreactive [facility] Comment:HIV-1 p24 Ag and/or HIV-1/HIV-2 Ab not detected.A test result that is nonreactive does not exclude thepossibility of exposure to or infection with HIV-1 and/orHIV-2. Nonreactive results in this assay for individualswith prior exposure to HIV-1 and/or HIV-2 may be due toantigen and antibody levels that are below the limit ofdetection of this assay.The [employer] Alinity HIV Ag/Ab Combo assay result andsupplemental assay results should be interpreted inconjunction with the patient's clinical presentation,history and other laboratory results. If the results areinconsistent with clinical evidence, additional testing issuggested to confirm the result. Blood Venous blood specimen / Unknown 05/20/2024 4:14 PM EST 05/20/2024 5:25 PM EST [facility] LAB BLOOD ORDERABLES Final Resu lt Performing Organization Address [facility] Co de Phone Number [facility] [address] [place] [phone] * Hepatitis B Surface Antibody, Qualitative (05/20/2024 4:14 PM EST) ~Hepatitis B Surface Antibody REACTIVE Nonreactive [facility] Comment:REACTIVE: > 11.99 mI U/mL Blood Venous blood specimen / Unknown 05/20/2024 4:14 PM EST 05/20/2024 5:25 PM EST [facility] LAB BLOOD ORDERABLES Final Resu lt Performing Organization Address City/[facility]/ZIP Co de Phone Number [facility] [address] [place] [phone] * (ABNORMAL) Lipid Panel, Standard (05/20/2024 4:14 PM EST) Triglycerides 110 <150 mg/dL [facility] Comment:Desirable Triglyceri de: less than 150 mg/dLBorderline High Triglyceride 150-199 mg/dLHigh Triglyceride: 200-499 mg/dLVery High Triglyceride: greater than or equal to 5OO mg/dL Cholesterol 237(H) <200 mg/dL [facility] Comment:Desirable Cholestero l: less than 200 mg/dLBorderline High Cholesterol: 200-239 mg/dLHigh Cholesterol: greater than 239 mg/dL LDL Cholesterol Calculated 171(H) <100 mg/dL [facility] Comment:Desirable LDL: less than 100 mg/dLNear Optimal/Above Optimal LDL: 110- 129 mg/dLBorderline High LDL: 130-159 mg/dLHigh LDL: 160-189 mg/dLVery High LDL: greater than or equal to 190 mg/dL HDL Cholesterol 44 >40 mg/dL [facility] Comment:Desirable HDL: great er than 40 mg/dL Note: This HDL assay may give artificially low results in patients with liver disease. Blood Venous blood specimen / Unknown 05/20/2024 4:14 PM EST 05/20/2024 5:25 PM EST us Joy Braswell [facility] LAB BLOOD ORDERABLES Final Resu lt Performing Organization Address City/State/[facility] Co de Phone Number [facility] [address] [place] [phone] from Last 3 Months Insurance [facility] C3 Care Teams Fender Mechanic Relationship Specialty Start Date End Date Joy Braswell NP [address] [place] [phone] PCP - General Family Medicine 04/27/24 Alia Delgado Structural Mill SupervisorSaddle Stitch Operator 05/23/24
--- OUTSIDE RECORDS SUMMARY | 2024-06-10 14:52 | XMS_ITS | Encounter Summary ---
Author Organization [employer] Address [address] [place] [address] Care Team Providers Care Book Author Name Role Phone Joy Braswell NP Primary Care Provider [phone] Encounter Details Date Type Department Care Team (Late st Contact Info) Description 06/03/2024 Orders Only [facility] [address] [place], [place] [phone] Joy Braswell NP [address] [place], [place] [phone] Anemia, unspecified type Social History Tobacco Use Types Packs/Day Years [...] t he electric, gas, oil or water [employer] threatened to shut off services in your home? No 10/20/2023 Depression Answer Date Recorded Patient Health Questionnaire-2 Score 6 02/18/2024 Comments Unknown Sex and Gender Information Value Date Recorded Sex Assigned at Female 03/17/2022 10:20 AM EDT Legal Sex Female 10:20 AM EDT Gender Identity Female 11/05/2023 9:30 AM EDT Sexual Orientation Straight 11/05/2023 9: 30 AM EDT documented as of this encounter Plan of Treatment Upcoming Encounters Date Type Department Care Team (Late st Contact Info) Description 07/13/2024 9:00 AM EST Procedure Visit [facility] [address] [place] [address] Joy Braswell NP [address] [place] [address] documented as of this encounter Visit Diagnoses Diagnosis Anemia, unspecified type documented in this encounter Additional Health Concerns Assessment Noted Time PHQ-9 Depression Total Score: 20 024 2:37 PM EDT documented as of this encounter Care Teams Book Author Relationship Specialty Start Date End Date Joy Braswell NP [address] [place] [address] PCP - General Family Medicine 04/27/24 Alia Delgado Front Desk HostTrailer Truck Driver 05/23/24 documented as of this encounter
--- OUTSIDE RECORDS SUMMARY | 2024-06-10 14:52 | XMS_ITS | Encounter Summary ---
Author Organization [email or web address] Address [address] [place] [address] [address] [place] [address] Care Team Providers Care Tooling Engineering Tech Name Role Phone Joy Braswell SIMI Primary Care Provider [phone] Reason for Visit * Reason Onset Date Comments Med Refill 06/08/2024 Encounter Details Date Type Department Care Team (Late st Contact Info) Description 06/03/2024 Refill [facility] MEDICINE [address] [place] [address] Nicole Haji RN Anemia, unspecified type Social History Tobacco Use [...] encounter Miscellaneous Notes * Telephone Encounter - Nicole Haji RN - 06/03/2024 1:14 PM EST TC placed to pt per [...] Pt reports she was not able to cloth picker the FeroSul 325 (65 Fe) MG tabletas her insurance won't cover unless it is prescribed as a [...] Description 07/13/2024 9:00 AM EST Procedure Visit [facility] MEDICINE [address] [place] [address] Joy Braswell NP [address] [place] [address] documented as of this encounter Visit Diagnoses Diagnosis Anemia, unspecified type documented in this encounter Additional Health Concerns Assessment Noted Time PHQ-9 Depression Total Score: 20 024 2:37 PM EDT documented as of this encounter Care Teams Tooling Engineering Tech Relationship Specialty Start Date End Date Joy Braswell NP [address] [place] [address] PCP - General Family Medicine 04/27/24 Alia Delgado Freight Elevator OperatorCommunity Development Worker 05/23/24 documented as of this encounter
--- OUTSIDE RECORDS SUMMARY | 2024-06-10 14:52 | XMS_ITS | Encounter Summary ---
Author Organization [employer] Address [address] [place] [address] [address] [place] [address] Care Team Providers Care Group Controller Name Role Phone Joy Braswell NP Primary Care Provider [phone] Reason for Visit * Reason Onset Date Comments No Show 06/03/2024 Encounter Details Date Type Department Care Team (Late st Contact Info) Description 06/03/2024 Telephone [facility] MEDICINE [address] [place], [place] [phone] Joy Braswell NP [address] [place] [address] No Show Social History Tobacco Use Types Packs/Day Years [...] encounter Miscellaneous Notes * Telephone Encounter - Suzette Bailon - 06/03/2024 10:17 AM EST Patient no show to nurse visit on 06/03/24. documented in this encounter Plan of Treatment Upcoming Encounters Date Type Department Care Team (Late st Contact Info) Description 07/13/2024 9:00 AM EST Procedure Visit [facility] MEDICINE [address] [place] [address] Joy Braswell NP [address] [place] [address] documented as of this encounter Visit Diagnoses Not on filedocumented in this encounter Additional Health Concerns Assessment Noted Time PHQ-9 Depression Total Score: 20 024 2:37 PM EDT documented as of this encounter Care Teams Group Controller Relationship Specialty Start Date End Date Joy Braswell NP [address] [place] [address] PCP - General Family Medicine 04/27/24 Alia Delgado Orange Picking SupervisorPayroll Officer 05/23/24 documented as of this encounter
--- OUTSIDE RECORDS SUMMARY | 2024-06-10 14:52 | XMS_ITS | Encounter Summary ---
Author Organization [facility] Address [address] [place] [address] 7t [place] [address] Care Team Providers Care Division Traffic Superintendent Name Role Phone Joy Braswell SIMI Primary Care Provider [phone] Reason for Visit * Reason Onset Date Comments New patient 10/20/2023 Encounter Details Date Type Department Care Team (Late st Contact Info) Description 10/20/2023 Telephone [facility] MEDICINE [address] [place], [place] [phone] Dex Lott MD [address] [place] [address] New patient Social History Tobacco Use Types Packs/Day Years Used Date Smoking Tobacco: Never Assessed Housing Stability Answer Date Recorded What is [...] off services in your home? No 10/20/2023 Comments Unknown Sex and Gender Information Value Date Recorded Sex Assigned at Female 03/17/2022 10:20 AM EDT Legal Sex Female 10:20 AM EDT Gender Identity Female 11/05/2023 9:30 AM EDT Sexual Orientation Straight 11/05/2023 9: 30 AM EDT documented as of this encounter Miscellaneous Notes * Telephone Encounter - Toya Uvaldo - 10/20/2023 1:11 PM EDT TC from caller requesting NEW PATIENT visit . Pt was [facility] at [facility] on 10/12 and discharged on10/15 for severe anemia and high blood pressure Medical Conditions: Anxiety/depression Hypertension Insurance name : [employer] Demographic information updated Please contact pt at [phone] documented in this encounter Plan of Treatment Upcoming Encounters Date Type Department Care Team (Late st Contact Info) Description 07/13/2024 9:00 AM EST Procedure Visit [facility] MEDICINE [address] [place] [address] Joy Braswell NP [address] [place] [address] documented as of this encounter Visit Diagnoses Not on filedocumented in this encounter Care Teams Division Traffic Superintendent Relationship Specialty Start Date End Date Joy Braswell NP [address] [place] [address] PCP - General Family Medicine 04/27/24 Alia Delgado System Configuration SpecialistDictaphone Technician 05/23/24 documented as of this encounter
--- OUTSIDE RECORDS SUMMARY | 2024-06-10 14:52 | XMS_ITS | Encounter Summary ---
Author Organization [employer] Address [address] [facility] 7t [place] [address] Care Team Providers Care Tongue Binder Name Role Phone Joy Braswell SIMI Primary Care Provider [phone] Encounter Details Date Type Department Care Team (Latest Contact Info) Description 05/20/2024 Travel Social History Tobacco Use Types Packs/Day Years [...] Description 07/13/2024 9:00 AM EST Procedure Visit [facility] MEDICINE [address] [place] [address] Joy Braswell NP [address] [place] [address] documented as of this encounter Visit Diagnoses Not on filedocumented in this encounter Additional Health Concerns Assessment Noted Time PHQ-9 Depression Total Score: 20 024 2:37 PM EDT documented as of this encounter Care Teams Tongue Binder Relationship Specialty Start Date End Date Joy Braswell NP [address] [place] [address] PCP - General Family Medicine 04/27/24 documented as of this encounter
--- OUTSIDE RECORDS SUMMARY | 2024-06-10 14:52 | XMS_ITS | Clinical Summary ---
Author Organization [facility] Address [address] [place] [address] Care Team Providers Care Director Trust Name Role Phone Unavailable Primary Care Provider Unavailabl e Source Comments PLEASE NOTE, if this patient is a minor, it may be UNLAWFUL to discuss sensitive information that is contained in these records (such as FAMILY PLANNING, MENTAL HEALTH or SUBSTANCE ABUSE) with the minor patient's parent or other person without the patient's specific authorization.[facility] Medications acetaminophen (TYLENOL) 325 mg tablet Take 650 mg by mouth every 4 (four) hours as needed for pain 10/13/2023 Active amLODIPine (NORVASC) 5 mg tablet Take 1 Tablet by mouth once daily 02/15/2024 Active amLODIPine (NORVASC) 5 mg tablet Take 5 mg by mouth once daily Active ascorbic acid, vitamin C, (VITAMIN C) 250 mg tablet Take 250 mg by mouth once daily Active cholecalciferol, vitamin D3, (VITAMIN D3) 1,250 mcg (50,000 unit) capsule Take 50,000 Units by mouth once a week 02/08/2024 Active cholecalciferol, vitamin D3, (VITAMIN D3) 1,250 mcg (50,000 unit) tab tablet Take 50,000 Units by mouth once a week 02/06/2024 Active ferrous sulfate 325 mg (65 mg iron) tablet Take 1 Tablet by mouth every 48 hours 10/16/2023 Active hydroCHLOROthiaz americo 12.5 mg tablet Take 12.5 mg by mouth daily 11/06/2023 5 Active Active Problems Problem Noted Date Diagnosed Date Severe recurrent major depre ssion without psychotic features (HCC-CMS) 03/24/2024 Assessment & Plan (03/24/2024 4:22 PM EST): Patient presents with severe major depressive disorder with active suicidal ideation, complicated by agoraphobia and panic disorder. High risk factors include daily suicidal thoughts, past attempt, impulsivity, social isolation, and medication non-compliance. ASSESSMENT AND PLAN: Due to severity of symptoms and acute suicide risk (daily ideation, past attempt, impulsivity, isolation), immediate psychiatric hospitalization recommended. Police department contacted for wellness check and potential hospital transport. Provider stay connected to patient until the crisis team arrived at patient's resident. PATIENT EDUCATION: Patient educated about severity of symptoms and need for immediate psychiatric intervention. Patient informed about police wellness check and encouraged to accept hospitalization. Patient educated about impulsive nature of suicide attempts and importance of immediate intervention for safety. Suicidal thoughts 03/24/2024 Assessment & Plan (03/24/2024 4:23 PM EST): Crisis team looped in Primary hypertension 02/06/2024 Overview (03/24/2024): Last Assessment & Plan: -continue amlodipine 5 mg as rx'ed -start hctz given persistently elevated BP -BP cuff rx'ed and log provided for daily monitoring -follow-up 1 month for BP check Agoraphobia 11/02/2023 Anemia 11/02/2023 Overview (03/24/2024): Last Assessment & Plan: -repeat labs ordered -encouraged continued use of iron supplement in addition to vitamin C -advised increased intake of iron rich foods, examples provided -follow-up with assigned pcp in 4 weeks Anxiety 11/02/2023 Overview (03/24/2024): Last Assessment & Plan: -patient seen by psych during hospitalization -states she stable at this time, but is willing to accept referral for psych services -advised on the benefits of engaging in gentle yoga practices, meditation, deep breathing and journaling along with physical activity to aid in symptom improvement -follow-up in 4 weeks Depression 11/02/2023 Menorrhagia 11/02/2023 Encounters Date Type Department Care Team Description 03/24/2024 3:00 PM EST Behavioral Health Visit [facility] [address] [place] [phone] Laura Baldwin APRN Severe recurrent major depression without psychotic features (HCC-CMS) (Primary Dx); Agoraphobia; Suicidal thoughts from Last 3 Months Immunizations Name Administration Dates Next Due Flu, Multi Dose 0.5 ML 02/02/2017 Hep B, Adult/Adol (ENERGIX/RECOMBIVAX) 6,06/10/2005 [facility] State Funded Flu Vaccine 03/09/2013 TDAP 11/22/2015 Td(adult),2 Lf tetanus toxoid,preservative free 06/06/2005 Family History Medical History Relation Name Comments Stroke Mother Relation Name Status Comments Daughter 2 daughters 1 w ith depression and anxeity. Mother Alive Sister Alive Son two sons with D epression and anxiety Social History Tobacco Use Types Packs/Day Years Used Date Smoking Tobacco: Former Cigarettes 0.5 36.1 S tarted: 1988 Smokeless Tobacco: Never Tobacco Cessation:Counseling Given: Yes Alcohol Use Standard Drinks/Week Comments Not Currently 0 (1 standard drink = 0.6 oz pur e alcohol) Social Connections Answer Date Recorded Connectedness 0 03/04/2024 Financial Resource Strain Answer Date R ecorded Financial Resource Strain 0 2023 Stress Answer Date Recorded Stress 0 03/04/2024 Physical Activity Answer Date Recorded Physical Activity 0 03/04/2024 Food Insecurity Answer Date Recorded Food 0 03/04/2024 Transportation Needs Answer Date Record ed Transportation 0 03/04/2024 Housing Stability Answer Date Recorded Housing 0 03/04/2024 Safety and Environment Answer Date Jonathan rded Safety 0 03/04/2024 Utilities Answer Date Recorded Utilities 0 03/04/2024 Employment Answer Date Recorded Stress 0 03/04/2024 Comments Unknown Sex and Gender Information Value Date Recorded Sex Assigned at Female 02/26/2024 10:39 AM PDT Legal Sex Female 10:39 AM PDT Gender Identity Female 02/26/2024 10:39 AM PDT Sexual Orientation Not on file Plan of Treatment Health Maintenance Due Date Last Done Comments Depression Monitoring 1973 Diabetes Screening 1973 HPV Screening 1973 Hepatitis C Screening 1973 Lipid Screening 1973 Pap + HPV 1973 HIV Screening 1988 Cervical Cancer Screening 1994 Pap Smear 1994 Imm-Hepatitis B (3 of 3 - 19 + 3-dose series) 12/08/2005 07/10/2005, 06/10/2005 Breast Cancer Screening (Mammogram) 2013 CT Colonography 2018 Colonoscopy 2018 Colorectal Cancer Screening 2018 FIT/gFOBT 2018 Fecal DNA 2018 Flexible Sigmoidoscopy 2018 Imm-Zoster, Recombinant (1 of 2) 2023 [id number] ( season) 2024 Imm-Influenza (#1) 2024 02/02/2017, 03/09/2013 Alcohol and Drug Screen 05/18/2024 Tobacco Screening 03/24/2025 03/24/2024 Imm-DTaP/Tdap/Td (2 - Td or Tdap) 11/21/2025 016, 06/06/2005 Cervical Ablation/Cold-Knife Conization Discontinued Cervical Cryotherapy Discontinued Colposcopy Discontinued Endometrial Biopsy Discontinued Excision/Leep Discontinued HPV Genotyping Discontinued Vaginal Pap Discontinued Vulvoscopy Discontinued Insurance [place] MEDICAID [facility]
== END 2024-06-10 13:04 | disposition home or self-care (01) ==
LOC: HO.MAMMO 13:03
PROVIDERS: Visit Provider Nurse Practitioner
DX: Z12.31 Encounter for screening mammogram for malignant neoplasm of breast (principal)
CPT/HCPCS: 77063; 77067

== ENCOUNTER → 2024-06-10 13:15 | Outpatient (BNV) | payer MEDICAID, SELFPAY | PROVIDERS: Visit Provider Internal Medicine | DX: Z12.31 Encounter for screening mammogram for malignant neoplasm of breast (principal) | CPT/HCPCS: 77063; 77067 ==

== ENCOUNTER 2024-08-05 09:18 | Outpatient (REF) | payer MEDICAID, SELFPAY ==
--- NOTE | ~2024-08-05 | US_ITS ---
EXAMINATION: MM DIAGNOSTIC DIGITAL BREAST TOMOSYNTHESIS, RIGHT Limited right breast ultrasound. CLINICAL INFORMATION: Call back from screening for asymmetry in the right breast on CC view. COMPARISON: Mammography: Prior on PACS. TECHNIQUE: Digital breast tomosynthesis is performed in both the craniocaudal and mediolateral oblique views along with computer-aided detection (CAD). Synthesized 2D images are generated from the tomosynthesis. FINDINGS: The breasts are heterogeneously dense, which may obscure small masses (ACR BI-RADS breast composition Category c). Asymmetry in the retroareolar region slightly lateral breast on CC view does not persist on additional focal field imaging projections and likely represented overlapping breast tissue. There are no significant masses, abnormal calcifications, or other abnormalities. Targeted color Doppler ultrasound scanning in the retroareolar region and lower outer quadrant demonstrates normal fibroglandular breast tissue. US/US breast RT limited mamm only IMPRESSION: No mammographic or sonographic abnormality. ASSESSMENT: BI-RADS BI-RADS 1 - Negative RECOMMENDATION: 1 year F/U Results were provided to the patient at time of visit by the technologist. This patient's information was entered into a reminder system with a target due date for their next mammogram. Electronically signed by: Jaycee Metz DO 08/05/2024 10:21 AM EDT
--- OUTSIDE RECORDS SUMMARY | 2024-08-05 10:23 | XMS_ITS | Clinical Summary ---
Author Organization [facility] Address [address] [place] [address] Care Team Providers Care Arch Pad Cementer Name Role Phone Unavailable Primary Care Provider [...] in 4 weeks Depression 11/02/2023 Menorrhagia 11/02/2023 Immunizations Name Administration Dates Next Due Flu, Multi Dose 0.5 ML 02/02/2017 Hep B, Adult/Adol (ENERGIX/RECOMBIVAX) 6,06/10/2005 [facility] State Funded Flu Vaccine 03/09/2013 TDAP 11/22/2015 Td(adult),2 Lf tetanus toxoid,preservative free 06/06/2005 Family History Medical History Relation Name Comments Stroke Mother Relation Name Status Comments Daughter 2 daughters 1 w ith depression and anxeity. Mother Alive Sister Alive Son two sons with D epression and anxiety Social History Tobacco Use Types Packs/Day Years Used Date Smoking Tobacco: Former Cigarettes 0.5 36.2 S tarted: 1988 Smokeless Tobacco: Never Tobacco [...] 2018 Imm-Zoster, Recombinant (1 of 2) 2023 [id number] ( season) 2024 Imm-Influenza (#1) 2024 02/02/2017, 03/09/2013 Alcohol and Drug Screen 05/18/2024 Tobacco Screening 03/24/2025 03/24/2024 Imm-DTaP/Tdap/Td (2 - Td or Tdap) 11/21/2025 016, 06/06/2005 Cervical Ablation/Cold-Knife Conization Discontinued Cervical Cryotherapy Discontinued Colposcopy Discontinued Endometrial Biopsy Discontinued Excision/Leep Discontinued HPV Genotyping Discontinued Vaginal Pap Discontinued Vulvoscopy Discontinued Insurance [place] MEDICAID [facility]
== END 2024-08-05 09:19 | disposition home or self-care (01) ==
LOC: HO.MAMMO 09:18
PROVIDERS: PCP Nurse Practitioner; Visit Provider Nurse Practitioner
DX: N64.89 Other specified disorders of breast (principal)
CPT/HCPCS: 76642; 77061; 77065

== ENCOUNTER → 2024-08-05 09:30 | Outpatient (BNV) | payer MEDICAID, SELFPAY | PROVIDERS: PCP Nurse Practitioner; Visit Provider Internal Medicine | DX: R92.8 Other abnormal and inconclusive findings on diagnostic imaging of breast (principal) | CPT/HCPCS: 76642; 77061; 77065 ==

== ENCOUNTER 2024-12-28 09:53 | Outpatient (REF) | payer MEDICAID, SELFPAY ==
[2024-12-28 21:46] LABS: Bacterial Vaginosis PCR POSITIVE (Negative); Candida Group PCR NOT DETECTED (Not Detect); Candida glab krusei PCR NOT DETECTED (Not Detect); Trichomonas vaginalis PCR NOT DETECTED (Not Detect)
--- OUTSIDE RECORDS SUMMARY | 2024-12-29 10:07 | XMS_ITS | Encounter Summary ---
Author Organization [employer] Address [address] [facility] [address]t [place] [address] Care Team Providers Care Charter Boat Captain Name Role Phone Joy Braswell NP Primary Care Provider Reason for Visit * Reason Onset Date Comments Med Refill 06/16/2024 Encounter Details Date Type Department Care Team (Late st Contact Info) Description 06/16/2024 Refill [facility] MEDICINE [address] [place], [place] [phone] Joy Braswell NP [address] [place] [address] Social History Tobacco Use Types Packs/Day Years [...] t he electric, gas, oil or water [employer] threatened to shut off services in your [...] as of this encounter Plan of Treatment Not on file documented as of this encounter Visit Diagnoses Not on filedocumented in this encounter Additional Health Concerns Assessment Noted Time PHQ-9 Depression Total Score: 20 024 2:37 PM EDT documented as of this encounter Care Teams Charter Boat Captain Relationship Specialty Start Date End Date Joy Braswell NP [address] [place] [address] PCP - General Family Medicine 04/27/24 Alia Delgado AerologistHhas 05/23/24 documented as of this encounter
[2024-12-30 19:54] LABS: C. trachomatis RNA TMA NOT DETECTED (NOT DETECTED); N. gonorrhoeae RNA TMA NOT DETECTED (NOT DETECTED); Trichomonas (NAAT) NOT DETECTED (NOT DETECTED)
== END 2024-12-28 09:54 | disposition home or self-care (01) ==
LOC: HO.HHCLNP 09:53
PROVIDERS: Visit Provider Nurse Practitioner
DX: Z12.4 Encounter for screening for malignant neoplasm of cervix (principal); Z11.3 Encounter for screening for infections with a predominantly sexual mode of transmission; Z11.8 Encounter for screening for other infectious and parasitic diseases; Z11.51 Encounter for screening for human papillomavirus (HPV); N93.9 Abnormal uterine and vaginal bleeding, unspecified
CPT/HCPCS: 81515; 87491; 87591; 87626; 87661; 88175